=== PATIENT | male | born 1950 | race Caucasian/White ===

== ENCOUNTER 2022-09-01 11:12 | Outpatient (CLI) | payer BC | END 2022-09-01 11:13 | disposition home or self-care (01) | LOC: BICRAD 11:12 | PROVIDERS: ATTEND Family Medicine | DX: R20.0 Anesthesia of skin (principal); M47.812 Spondylosis without myelopathy or radiculopathy, cervical region; M50.321 Other cervical disc degeneration at C4-C5 level; M43.12 Spondylolisthesis, cervical region | CPT/HCPCS: 72052 ==

== ENCOUNTER 2023-08-06 11:05 | Outpatient (CLI) | payer BC | END 2023-08-06 11:06 | disposition home or self-care (01) | LOC: BICRAD 11:05 | PROVIDERS: ATTEND Family Medicine | DX: M25.511 Pain in right shoulder (principal); M25.811 Other specified joint disorders, right shoulder ==

== ENCOUNTER 2023-10-15 08:24 | Outpatient (CLI) | payer BC | END 2023-10-15 08:25 | disposition home or self-care (01) | LOC: BICMAMMO 08:24 | PROVIDERS: ATTEND Family Medicine | DX: Z13.820 Encounter for screening for osteoporosis (principal); S42.294S Other nondisplaced fracture of upper end of right humerus, sequela; M85.851 Other specified disorders of bone density and structure, right thigh | CPT/HCPCS: 77080 ==